=== PATIENT | male | born 1945 | race Caucasian/White ===

== ENCOUNTER 2019-09-11 09:17 | Emergency (ER) | payer OTHER, MEDICARE ==
--- NOTE | 2019-09-11 10:28 | ER Document Report ---
ED Extremity Problem, Lower - General Chief Complaint: Swelling of Lower Extremity Stated Complaint: LOWER EXTREMITY SWELLING Time Seen by Provider: 09/11/19 10:21 Notes: Patient is a 73-year-old male who presents the emergency department with a chief complaint of left lower extremity swelling and tenderness. Patient states that he noticed his symptoms about almost a week ago. Patient states that he drove from [place] to [place]. Patient states that he was able to get out of the car and walk frequently. Patient denies any shortness of breath or difficulty breathing. Patient has history of hypertension. Denies any shortn ess of breath or difficulty breathing. Patient reports that he did get a pedicure prior to coming to [place]. - Related Data Home Medications: Amlodipine, Triam/TCTZ, Losartan Past Medical History - General Information source: Patient - Social History Smoking Status: Former Smoker Family History: Reviewed & Not Pertinent - Past Medical History Cardiac Medical History: Reports: Hx Hypertension Past Surgical History: Reports: Hx Orthopedic Surgery - L3&L4 Review of Systems - Review of Systems Notes: REVIEW OF SYSTEMS: CONSTITUTIONAL : Denies recent illness. Denies recent unintentional weight loss. Denies fever, chills, or sweats. EENT: Denies eye, ear, throat, or mouth pain, discharge, or symptoms. Denies nasal or sinus congestion. CARDIOVASCULAR: Denies chest pain. RESPIRATORY: Denies shortness of breath, cough, congestion, difficulty breathing, or wheezing. GASTROINTESTINAL: Denies nausea, vomiting, and diarrhea. Denies abdominal pain. Denies constipation. GENITOURINARY: Denies difficulty urinating, burning, blood in urine, urgency or frequency. MUSCULOSKELETAL: Denies neck and back pain. See HPI. SKIN: Denies rash, itchiness, or lesions HEMATOLOGIC : Denies easy bruising or bleeding. LYMPHATIC: Denies swollen, painful, enlarged glands. NEUROLOGICAL: Denies no numbness or tingling denies weakness. Denies headache. Denies altered mental status. Denies alteration in speech. PSYCHIATRIC: Denies stress, anxiety, alteration in sleep patterns, or depression. All other systems reviewed and negative. Physical Exam - Vital signs Vitals: Temp Pulse Resp BP Pulse Ox 98.7 F 69 20 168/71 H 99 09/11/19 09:22 09/11/19 09:22 09/11/19 09:22 09/11/19 09:22 09/11/19 09:22 - Notes Notes: PHYSICAL EXAMINATION: GENERAL: Appears well, healthy, well-nourished, no acute distress. HEAD: Normocephalic, atraumatic. EYES: PERRL, conjunctiva normal, all extraocular movements intact, sclera nonicteric ENT: Moist mucous membranes. NECK: Supple, no noticeable swelling, redness, rash. Normal range of motion. LUNGS: Equal breath sounds bilaterally and clear to auscultation. No wheezes rales or rhonchi. CARDIOVASCULAR: S1-S2, regular rate, regular rhythm. Radial pulses 2+, normal. Dorsalis pedis and posterior tibial pulses 2+. ABDOMEN: Normoactive bowel sounds. Soft, nontender, no guarding, no rebound tenderness, and no masses palpated. EXTREMITIES: Normal strength and range of motion, no pitting or edema. No cyanosis. NEUROLOGICAL: Moves all extremities upon command. Strength 5/5 in all extremities. PSYCH: Normal mood, normal affect. SKIN: Warm, dry. Erythema noted to left lower extremity. Course - Re-evaluation Re-evalutation: 09/11/19 12:40 Venous Doppler scrub technician reported that there was noted DVT noted, but there is some superficial official thrombophlebitis. This is to the left great saphenous vein mid to distal areas. I spoke with Dr. Treviño, my attending. Will place the patient on Eliquis. The patient may also have cellulitis noted. Will cover with doxycyline to cover vibrio infection. He will follow up with his primary care provider in [place]. Follow-up precautions were given. Verbal discharge instructions were given to the patient. They verbalized understanding. They are stable for discharge. - Vital Signs Vital signs: Temp Pulse Resp BP Pulse Ox 98.4 F 59 L 16 140/69 H 95 09/11/19 13:02 09/11/19 13:02 09/11/19 13:02 09/11/19 13:02 09/11/19 13:02 Discharge - Discharge Clinical Impression: Thrombophlebitis Cellulitis Qualifiers: Site of cellulitis: extremity Site of cellulitis of extremity: lower extremity Laterality: left Qualified Code(s): L03.116 - Cellulitis of left lower limb Condition: Stable Disposition: HOME, SELF-CARE Additional Instructions: You were seen today in the emergency department for swelling to your left lower leg. You have thrombophlebitis to the great saphenous vein. You are being started on Eliquis. You are also being treated for cellulitis. Take the doxycycline as prescribed. You can use warm compresses. Please follow-up with your primary care provider in regards to this visit. See if you can make an appointment for sometime next week. When you see your primary care provider, please ask for compression stockings. Prescriptions: Doxycycline Hyclate 100 mg PO BID #14 tablet. Apixaban [Eliquis] 5 mg PO BID #28 tab.ds.[id number] Forms: Return to Work
[2019-09-11 13:06] VITALS: BP 140/69
--- NOTE | 2019-09-11 13:55 | RADIOLOGY REPORT (SQ) ---
EXAM DESCRIPTION: VENOUS UNILATERAL LOWER IMAGES COMPLETED DATE/TIME: 09/11/2019 1:03 pm REASON FOR STUDY: LLE swelling COMPARISON: None. TECHNIQUE: Dynamic and static martinez scale and color images acquired of the left leg venous system. Se lected spectral images acquired with additional compression and augmentation maneuvers. The contralat eral common femoral vein and saphenofemoral junction were also imaged. Images stored on PACS. LIMITATIONS: None. FINDINGS: COMMON FEMORAL: Normal phasicity, compression and augmentation. No visualized echogenic ma terial on martinez scale. No defects on color images. FEMORAL: Normal compression and augmentation. No visualized echogenic material on martinez scale. No defe cts on color images. POPLITEAL: Normal compression, augmentation. No visualized echogenic material on martinez scale. No defec ts on color images. CALF VESSELS: Normal compression, augmentation. No visualized echogenic material on martinez scale. No de fects on color images. GSV and SSV: There is acute SVT involving the distal left greater saphenous vein at the level of the distal calf. The small saphenous vein is patent. ANY DEEP VENOUS INSUFFICIENCY: Not evaluated. ANY EVIDENCE OF POPLITEAL CYST: No. OTHER: No other significant finding. CONTRALATERAL COMMON FEMORAL VEIN AND SAPHENOFEMORAL JUNCTION: Normal phasicity, compression and augmentation. No visualized echogenic material on martinez scale. No de fects on color images. IMPRESSION: 1. No evidence of DVT. 2. Isolated superficial thrombophlebitis involving the left greater saphenous vein at the level of t he distal calf. TECHNICAL DOCUMENTATION: JOB ID: [id number] 2010 [employer]- All Rights Reserved Reading location - IP/workstation name: [email or web address]
== END 2019-09-11 13:10 | disposition home or self-care (01) ==
LOC: ER 09:17
DX: I80.9 Phlebitis and thrombophlebitis of unspecified site (principal); L03.116 Cellulitis of left lower limb; M79.89 Other specified soft tissue disorders; M79.605 Pain in left leg; Z87.891 Personal history of nicotine dependence; Z79.899 Other long term (current) drug therapy; I10 Essential (primary) hypertension
CPT/HCPCS: 93971; 99285